=== PATIENT | female | born 1980 | race Caucasian/White ===

== ENCOUNTER 2017-08-08 04:33 | Emergency (ER) | payer BC ==
[~2017-08-08] VITALS: Ht 167.6 cm; Wt 59.0 kg
[2017-08-08] MEDS ORDERED: TOPAMAX50 MG PO (04:42)
[2017-08-08] MEDS ORDERED: ALDACTONE25 MG PO (04:42)
[2017-08-08] MEDS ORDERED: VITAMIN D2000 UNIT PO (04:43)
[2017-08-08] MEDS ORDERED: PROZAC10 MG PO (04:43)
[2017-08-08 05:03] LABS: URINE BILIRUBIN NEGATIVE (Negative); URINE BLOOD NEGATIVE (Negative); URINE CLARITY CLEAR; URINE COLOR YELLOW; URINE GLUCOSE-RANDOM NEGATIVE (Negative); URINE KETONES NEGATIVE (Negative); URINE LEUKOCYTES-REFLEX NEGATIVE (Negative); URINE NITRITE-REFLEX NEGATIVE (Negative); URINE PROTEIN NEGATIVE (Negative); URINE SPECIFIC GRAVITY 1.025 (1.005-1.030); URINE UROBILINOGEN 0.2 E.U./dl (0.2-1.0)
[2017-08-08 05:12] LABS: AMP/METHAMP POSITIVE (Negative); BARBITURATES Negative (Negative); BENZODIAZEPINES Negative (Negative); COCAINE Negative (Negative); METHADONE Negative (Negative); OPIATES POSITIVE (Negative); PCP Negative (Negative); THC Negative (Negative)
[2017-08-08 05:17] LABS: ABSOLUTE EOSINOPHILS 0.2 thou/uL (0.0-0.7); ABSOLUTE LYMPHOCYTES 2.9 thou/uL (0.8-5.3); ABSOLUTE MONOCYTES 0.4 thou/uL (0.0-1.2); BASOPHILS 0.7 %; EOSINOPHILS 3.1 %; HEMATOCRIT 40.8 % (37.0-47.0); HEMOGLOBIN 13.7 gm/dL (12.0-15.0); LYMPHOCYTES 52.6 %; MCHC 33.7 g/dL (28.0-37.0); MONOCYTES 7.8 %; MPV 8.5 fl. (7.2-11.1); NUCLEATED RBCS 0 /100WBC; PLATELET COUNT* 215 thou/uL (150-400); POLYS 35.8 %; RBC 4.43 mil/uL (4.20-5.00); RDW-CV 12.4 % (10.5-14.5); WBC 5.5 thou/uL (4.0-11.0)
[2017-08-08 05:21] LABS: CREATININE 1.1 mg/dL (0.6-1.3); POTASSIUM 4.2 mmol/L (3.5-5.1)
[2017-08-08 05:25] LABS: ALBUMIN 4.1 g/dL (3.4-5.0); TOTAL BILIRUBIN 0.4 mg/dL (<0.1-1.0); TOTAL PROTEIN 7.3 g/dL (6.4-8.2)
[2017-08-08] MEDS ORDERED: IBUPROFEN 800800 MG PO (06:33)
[2017-08-08] MEDS ORDERED: NORCO 5-325 TA1 EACH PO (06:33)
[2017-08-08 07:05] VITALS: BP 120/82
== END 2017-08-08 07:05 | disposition home or self-care (01) ==
LOC: M.ERS 04:33
PROVIDERS: Personal Emergency Response Attendant
DX: M54.42 Lumbago with sciatica, left side (principal); Z88.0 Allergy status to penicillin